=== PATIENT | female | born 1995 | race Caucasian/White ===

== ENCOUNTER 2017-04-09 02:57 | Emergency (ER) | payer OTHER ==
[2017-04-09 04:12] LABS: Add Diff/Slide Review? Slide Review Added; Comments Flag Yes; Hematocrit 43 % (35-47); Hemoglobin 14.8 g/dl (12.0-16.0); Mean Corpuscular HGB Conc 34 g/dl (31-36); Mean Corpuscular Hemoglobin 29 pg (27-31); Mean Corpuscular Volume 84 fL (80-97); Mean Platelet Volume 8 um3 (7.4-10.4); Red Blood Count 5.11 10^6/ul (4.0-5.4); Red Cell Distribution Width 12 % (10.5-15); White Blood Count 8.5 10^3/ul (3.5-10.8)
[2017-04-09 04:15] LABS: Albumin 4.4 g/dL (3.2-5.2); BUN/Creatinine Ratio 14.1 (8-20); Calcium 8.7 mg/dL (8.6-10.3); EGFR African American 118.8 (>60); EGFR Non-African American 92.4 (>60); Globulin 2.9 g/dL (2-4); Potassium 3.2 mmol/L (3.5-5.0); Total Bilirubin 0.7 mg/dL (0.2-1.0); Total Protein 7.3 g/dL (6.4-8.9)
--- NOTE | 2017-04-09 05:47 | ED ---
Leisa Borden Rebecca, scribed for Franky Ferguson MD on 04/09/17 at 0309 . Substance Abuse/Use - HPI Summary HPI Summary: Pt is a 21 y/o F BIBA who comes to ED p/w acute alcohol intoxication. She was brought in by ambulance due to unresponsiveness and vomiting. When asked, pt denies any EtOH consumption or vomiting. Denies any pain. Level 5 caveat due to EtOH intoxication. - History Of Current Complaint Chief Complaint: EDSubstanceAbuse Stated Complaint: ALCOHOL CONSUMPTION Hx Obtained From: Patient Hx From Patient Unobtainable Due To: Other - EtOH consumption Ingestion History: Type/Name Of Drug - EtOH Overdose Characteristics: Oral Character: Other - Decreased responsiveness Associated Signs And Symptoms: Vomiting - BIBA for vomiting, though pt denies - Allergies/Home Medications Allergies/Adverse Reactions: Allergies Allergy/AdvReac Type Severity Reaction Status Date / Time No Known Allergies Allergy Verified 01/13/14 20:11 PMH/Surg Hx/FS Hx/Imm Hx Infectious Disease History: Denies: Traveled Outside the [place] in Last 30 Days - Social History Alcohol Use: currently intoxicated Substance Use Type: Reports: None Review of Systems Positive: Vomiting - BIBA for vomiting, though pt denies Negative: Arthralgia - Pt denies any pain Positive: Other - Decreased responsiveness All Other Systems Reviewed And Are Negative: No Physical Exam - Summary Physical Exam Summary: The skin is warm and dry and skin color reflects adequate perfusion. HEENT: The head is normocephalic and atraumatic. The pupils are equal and reactive. The conjunctivae are clear and without drainage. Nares are patent and without drainage. Mouth reveals dry mucous membranes and the throat is without erythema and exudate. The external ears are intact. Neck is supple with full range of motion and non-tender. There are no carotid bruits. There is no neck vein distension. Respiratory: Chest is non-tender. Lungs are clear to auscultation and breath sounds are symmetrical and equal. Cardiovascular: Hear is regular rate and rhythm. There is no murmur or rub auscultated. There is no peripheral edema and pulses are symmetrical and equal. Abdomen: The abdomen is soft and non-tender. There are normal bowel sounds heard in all four quadrants and there is no organomegaly palpated. Musculoskeletal: There is no back pain noted. Extremities are non-tender with full range of motion. There is good capillary refill. There is no peripheral edema or calf tenderness elicited. Neurological: Cannot assess patient. Triage Information Reviewed: Yes Vital Signs On Initial Exam: Initial Vitals Temp Pulse Resp BP Pulse Ox 97.7 F 86 16 113/75 94 04/09/17 03:00 04/09/17 03:00 04/09/17 03:00 04/09/17 03:00 04/09/17 03:00 Vital Signs Reviewed: Yes Diagnostics - Vital Signs Vital Signs Temp Pulse Resp BP Pulse Ox 04/09/17 03:00 97.7 F 86 16 113/75 94 - Laboratory Lab Results: Lab Results 04/09/17 04/09/17 Range/Units 03:51 03:51 WBC 8.5 (3.5-10.8) 10^3/ul RBC 5.11 (4.0-5.4) 10^6/ul Hgb 14.8 (12.0-16.0) g/dl Hct 43 (35-47) % MCV 84 (80-97) fL MCH 29 (27-31) pg MCHC 34 (31-36) g/dl RDW 12 (10.5-15) % Plt Count 292 (150-450) 10^3/ul MPV 8 (7.4-10.4) um3 Neut % (Auto) 62.2 (38-83) % Lymph % (Auto) 25.6 (25-47) % [place] % (Auto) 5.7 (1-9) % Eos % (Auto) 5.9 (0-6) % Baso % (Auto) 0.6 (0-2) % Absolute Neuts (auto) 5.3 (1.5-7.7) 10^3/ul Absolute Lymphs (auto) 2.2 (1.0-4.8) 10^3/ul Absolute Monos (auto) 0.5 (0-0.8) 10^3/ul Absolute Eos (auto) 0.5 (0-0.6) 10^3/ul Absolute Basos (auto) 0.1 (0-0.2) 10^3/ul Absolute Nucleated RBC 0.06 10^3/ul Nucleated RBC % 0.7 Sodium 135 (133-145) mmol/L Potassium 3.2 L (3.5-5.0) mmol/L Chloride 105 (101-111) mmol/L Carbon Dioxide 21 L (22-32) mmol/L Anion Gap 9 (2-11) mmol/L BUN 11 (6-24) mg/dL Creatinine 0.78 (0.51-0.95) mg/dL Est GFR ( Amer) 118.8 (>60) Est GFR (Non-Af Amer) 92.4 (>60) BUN/Creatinine Ratio 14.1 (8-20) Glucose 121 H (70-100) mg/dL Calcium 8.7 (8.6-10.3) mg/dL Total Bilirubin 0.70 (0.2-1.0) mg/dL AST 25 (13-39) U/L ALT 16 (7-52) U/L Alkaline Phosphatase 49 (34-104) U/L Total Protein 7.3 (6.4-8.9) g/dL Albumin 4.4 (3.2-5.2) g/dL Globulin 2.9 (2-4) g/dL Albumin/Globulin Ratio 1.5 (1-3) Serum Alcohol 265 H (<10) mg/dL Result Diagrams: 04/09/17 03:51 04/09/17 03:51 Lab Statement: Any lab studies that have been ordered have been reviewed, and results considered in the medical decision making process. Course/Dx - Course Assessment/Plan: Pt is a 21 y/o F BIBA who comes to ED p/w acute alcohol intoxication and unresponsiveness. When asked, pt denies any EtOH consumption or vomiting. Denies any pain. Level 5 caveat due to EtOH intoxication. Serum alcohol 265. Pt will be D/C to home with Dx of acute alcohol intoxication and follow up with [facility]. - Diagnoses Differential Diagnosis/HQI/PQRI: Positive: Alcohol Abuse, Metabolic Disorder Provider Diagnoses: Acute alcohol intoxication Discharge - Discharge Plan Condition: Stable Disposition: HOME Patient Education Materials: Alcohol Intoxication (ED) Referrals: [facility] [Outside] - 3 Days The documentation as recorded by the Leisa wang Rebecca accurately reflects the service I personally performed and the decisions made by me, Franky Ferguson MD.
[2017-04-09] MEDS ORDERED: Potassium Chlor TAB* 20 MEQ TAB.ER PO ONE (07:40)
[2017-04-09 09:34] LABS: Benzodiazepine Urine Screen None Detected (None Detect)
[2017-04-09 10:24] VITALS: BP 138/77
== END 2017-04-09 10:23 | disposition home or self-care (01) ==
LOC: ED 02:57
DX: F10.129 Alcohol abuse with intoxication, unspecified (principal); Y90.8 Blood alcohol level of 240 mg/100 ml or more; R11.10 Vomiting, unspecified
CPT/HCPCS: 36415; 80053; 80307; 80320; 85025; 99283; A9270-GY; G0480